=== PATIENT | male | born 1935 | race Caucasian/White ===

== ENCOUNTER 2017-05-21 18:10 | Emergency (ER) | payer MEDICARE, OTHER ==
[~2017-05-21] VITALS: Ht 182.9 cm; Wt 85.7 kg
[~2017-05-21 18:10] MED LIST: ASPIRIN EC325 M1 PO; ATORVASTATIN CA10 MG PO; BENICAR20 MG PO; COLACE 100 MG100 MG PO; COLACE100 MG PO; COZAAR 25 MG TA25 M1 PO; COZAAR 50 MG TA50 M1 PO; CRESTOR5 MG; ELIQUIS5 MG PO; FAMOTIDINE 40 M40 M1; FLOMAX0.4 MG PO; FOLIC ACID 1 MG1 MG PO; IRON325 PO; LOPRESSOR25 PO; MINOCIN100 MG PO; NORCO 5-325 TA1 EACH PO; OXECTA5 MG PO; OXYCODONE HCL 55 MG PO; POTASSIUM PO; PRILOSEC40 MG PO; PROSCAR 5MG TABL5 MG PO; RESTORIL15 MG PO; TRAMADOL 50 MG50 MG PO; VITAMIN B12 PO; XARELTO10 M1 PO; ZOFRAN ODT4 MG PO
[2017-05-21 18:55] LABS: HEMATOCRIT 42.4 % (42.0-52.0); HEMOGLOBIN 14.3 gm/dL (14.0-18.0); MCHC 33.6 g/dL (28.0-37.0); MCV 104.2 fL (80.0-100.0); MPV 8.6 fl. (7.2-11.1); NUCLEATED RBCS 0 /100WBC; PLATELET COUNT* 207 thou/uL (150-400); RBC 4.07 mil/uL (4.50-6.00); RDW-CV 14.4 % (10.5-14.5); WBC 9.7 thou/uL (4.0-11.0)
[2017-05-21 19:04] LABS: ANION GAP 9 mmol/L (7-16); BUN 20 mg/dL (7-18); CALCIUM 8.9 mg/dL (8.5-10.1); CHLORIDE 103 mmol/L (98-107); CO2 27 mmol/L (21-32); CREATININE 0.8 mg/dL (0.6-1.3); GLUCOSE 114 mg/dL (70-99); POTASSIUM 3.8 mmol/L (3.5-5.1); SODIUM 139 mmol/L (136-145)
[2017-05-21 19:16] LABS: ABSOLUTE LYMPHOCYTES 1.5 thou/uL (0.8-5.3); ABSOLUTE MONOCYTES 0.5 thou/uL (0.0-1.2); ABSOLUTE NEUTROPHILS 7.8 thou/uL (1.6-8.1); NT-PRO BRAIN NAT PEPTIDE 255 pg/mL (<300); PLATELET ESTIMATE ADEQUATE; TROPONIN-I LEVEL <0.06 ng/mL (<0.06)
[2017-05-21 21:53] VITALS: BP 140/78
--- NOTE | 2017-05-22 14:43 | EKG ---
[place] [address] ELECTROCARDIOGRAM REPORT Name: MIGUELITO COLLINS Room: [facility]#: [id number] Admission: 05/21/17 Attend Phys: Discharge: 05/21/17 Date of : 39 Report #: [id number] THIS REPORT FOR: //name// [facility] ED Test Date: 2017-05-21 Test Time: 19:36:26 Pat Name: MIGUELITO COLLINS Department: Room: Gender: M Product Technician: LEVI : 1935 Requested By: Keli Jackson Order Number: [id number] MD: Haroldo Weller Measurements Intervals [place] Rate: 67 P: 8 UT: 59 QRS: -65 QRSD: 205 T: 2 QT: 398 QTc: 420 Interpretive Statements Sinus rhythm Short UT interval Inferior infarct, old Lateral leads are also involved Compared to ECG 09/24/2016 19:27:19 Short UT interval now present Sinus tachycardia no longer present Myocardial infarct finding still present Electronically Signed On 05-22-2017 14:42:49 SENIOR ELECTRICAL DESIGN ENGINEER by Haroldo Weller [email or web address] <ELECTRONICALLY SIGNED> By: Haroldo Weller MD, FACC 05/22/17 1442 35 35 Haroldo Weller MD, FACC /EPI
== END 2017-05-21 22:17 | disposition home or self-care (01) ==
LOC: M.ERS 18:10
PROVIDERS: Nurse Practitioner Family
DX: S51.812A Laceration without foreign body of left forearm, initial encounter (principal); F10.10 Alcohol abuse, uncomplicated; I10 Essential (primary) hypertension; E78.00 Pure hypercholesterolemia, unspecified; Z98.890 Other specified postprocedural states; W18.39XA Other fall on same level, initial encounter; Y93.89 Activity, other specified; Y92.89 Other specified places as the place of occurrence of the external cause; Y99.8 Other external cause status

== ENCOUNTER 2018-01-07 06:34 | Inpatient (IN) | payer MEDICARE, OTHER ==
[~2018-01-07] VITALS: Ht 182.9 cm; Wt 102.5 kg
[2018-01-07 06:35] VITALS: BP 166/98
[2018-01-07] MEDS ORDERED: VOLTAREN GEL 1100 G2 TOP (06:44)
[2018-01-07] MEDS ORDERED: FUROSEMIDE 40 M40 MG PO (06:45)
[2018-01-07] MEDS ORDERED: NEURONTIN 400400 M1 PO (06:46)
[2018-01-07] MEDS ORDERED: LOPRESSOR50 PO (06:47)
[2018-01-07] MEDS ORDERED: IRON325 PO (06:47)
[2018-01-07] MEDS ORDERED: MULTIVITAMINS PO (06:48)
[2018-01-07] MEDS ORDERED: ZOLPIDEM TARTRA10 MG PO (06:49)
[2018-01-07] MEDS ORDERED: MELATONIN5 M1 PO (06:49)
[2018-01-07 07:00] LABS: ABSOLUTE BASOPHILS 0.1 thou/uL (0.0-0.2); ABSOLUTE EOSINOPHILS 0.1 thou/uL (0.0-0.7); ABSOLUTE LYMPHOCYTES 0.9 thou/uL (0.8-5.3); ABSOLUTE MONOCYTES 0.6 thou/uL (0.0-1.2); ABSOLUTE NEUTROPHILS 6.3 thou/uL (1.6-8.1); BASOPHILS 0.8 %; EOSINOPHILS 1.6 %; HEMATOCRIT 39.3 % (42.0-52.0); HEMOGLOBIN 13.6 gm/dL (14.0-18.0); LYMPHOCYTES 10.8 %; MCH 35.8 pg (26.0-34.0); MCHC 34.6 g/dL (28.0-37.0); MCV 103.6 fL (80.0-100.0); MPV 7.7 fl. (7.2-11.1); NUCLEATED RBCS 0 /100WBC; PLATELET COUNT* 171 thou/uL (150-400); POLYS 78.8 %; RDW-CV 13.4 % (10.5-14.5)
[2018-01-07 07:09] LABS: ANION GAP 6 mmol/L (7-16); BUN 11 mg/dL (7-18); CALCIUM 8.6 mg/dL (8.5-10.1); CHLORIDE 97 mmol/L (98-107); CO2 31 mmol/L (21-32); CREATININE 0.7 mg/dL (0.6-1.3); GLUCOSE 118 mg/dL (70-99); SODIUM 134 mmol/L (136-145)
[2018-01-07 07:11] LABS: INR 1.1; PROTIME 10.9 Seconds (9.20-11.50)
[2018-01-07 07:20] LABS: ALBUMIN 3.2 g/dL (3.4-5.0); ALKALINE PHOSPHATASE 63 U/L (46-116); LIPASE 503 U/L (73-393); NT-PRO BRAIN NAT PEPTIDE 387 pg/mL (<300); SGOT 67 U/L (15-37); SGPT 51 U/L (30-65); TOTAL BILIRUBIN 1.7 mg/dL (<0.1-1.0); TOTAL PROTEIN 6.1 g/dL (6.4-8.2); TROPONIN-I LEVEL <0.06 ng/mL (<0.06)
[2018-01-07 08:46] LABS: URINE BLOOD TRACE (Negative); URINE CLARITY CLEAR; URINE COLOR YELLOW; URINE GLUCOSE-RANDOM NEGATIVE (Negative); URINE KETONES 2+ (Negative); URINE LEUKOCYTES-REFLEX NEGATIVE (Negative); URINE PROTEIN TRACE (Negative)
[2018-01-07 08:47] LABS: ICTOTEST (BILI CONFIRMATORY) Negative (Negative); URINE BILIRUBIN 1+ (Negative); URINE NITRITE-REFLEX POSITIVE (Negative)
[2018-01-07 08:52] LABS: BACTERIA-REFLEX >30 Many /HPF (None Seen); CASTS None Seen /LPF (None Seen); CRYSTALS None Seen /LPF (None Seen); MUCUS None Seen strn/LPF (None Seen); SQUAMOUS 0-3 Few /LPF (0-3); URINE RBC 3-10 Few /HPF (0-2); URINE WBC-REFLEX 6-15 Few /HPF (0-5)
[2018-01-07 10:34] VITALS: BP 164/89
[2018-01-07 10:37] VITALS: BP 167/86
[2018-01-07 14:30] VITALS: BP 167/86
--- NOTE | 2018-01-07 16:27 | EKG ---
[place] [address] ELECTROCARDIOGRAM REPORT Name: MIGUELITO COLLINS Room: [address] ADM IN M.R.#: [id number] Admission: 01/07/18 Attend Phys: Joel Stokse MD Discharge: Date of : 39 Report #: [id number] THIS REPORT FOR: //name// [facility] ED Test Date: 2018-01-07 Test Time: 06:38:08 Pat Name: MIGUELITO CLOLINS Department: Room: [facility] Gender: M Resizer Operator: : 1935 Requested By: Halina Galindo Order Number: [id number] MD: Je Oleary Measurements Intervals [place] Rate: 89 P: 20 AK: 210 QRS: -42 QRSD: 103 T: 1 QT: 357 QTc: 435 Interpretive Statements Sinus rhythm Rare pvc Abnormal R-wave progression, late transition Inferior infarct, old Compared to ECG 05/21/2017 19:36:26 Sinus pause or arrest now present Short AK interval no longer present Myocardial infarct finding still present Electronically Signed On 01-07-2018 16:27:28 CDT by Je Oleary [email or web address] <ELECTRONICALLY SIGNED> By: Je Oleary MD, [facility] 01/07/18 1627 0638 0638 Je Oleary MD, [facility] /EPI
[2018-01-07 20:00] VITALS: BP 105/62
[2018-01-07 23:18] VITALS: BP 131/79
[2018-01-08] VITALS: BP 131/79
[2018-01-08 04:00] VITALS: BP 124/74
[2018-01-08 04:24] LABS: HEMATOCRIT 37.5 % (42.0-52.0); HEMOGLOBIN 12.8 gm/dL (14.0-18.0); MCH 35.6 pg (26.0-34.0); MCHC 34.2 g/dL (28.0-37.0); MCV 104.1 fL (80.0-100.0); MPV 8.7 fl. (7.2-11.1); RBC 3.6 mil/uL (4.50-6.00); RDW-CV 13.4 % (10.5-14.5); WBC 14.8 thou/uL (4.0-11.0)
[2018-01-08 05:01] LABS: ALBUMIN 2.5 g/dL (3.4-5.0); CALCIUM 7.8 mg/dL (8.5-10.1); CREATININE 0.7 mg/dL (0.6-1.3); MAGNESIUM 1.2 mg/dL (1.8-2.4); POTASSIUM 3.7 mmol/L (3.5-5.1); TOTAL BILIRUBIN 2.2 mg/dL (<0.1-1.0); TOTAL PROTEIN 5.4 g/dL (6.4-8.2)
[2018-01-08 09:00] VITALS: BP 124/75
[2018-01-08 15:48] VITALS: BP 150/69
[2018-01-08 16:00] VITALS: BP 154/88
[2018-01-08 20:00] VITALS: BP 174/95
[2018-01-09 00:19] VITALS: BP 148/79
[2018-01-09 04:40] VITALS: BP 179/89
[2018-01-09 08:00] VITALS: BP 179/89
[2018-01-09 08:53] LABS: HEMATOCRIT 36.8 % (42.0-52.0); HEMOGLOBIN 12.5 gm/dL (14.0-18.0); MCV 105.8 fL (80.0-100.0); MPV 9.5 fl. (7.2-11.1); NUCLEATED RBCS 0 /100WBC; PLATELET COUNT* 142 thou/uL (150-400); RBC 3.48 mil/uL (4.50-6.00); RDW-CV 13.5 % (10.5-14.5); WBC 11.9 thou/uL (4.0-11.0)
[2018-01-09 09:25] LABS: ALBUMIN 2.5 g/dL (3.4-5.0); CALCIUM 7.9 mg/dL (8.5-10.1); CREATININE 0.6 mg/dL (0.6-1.3); POTASSIUM 3.6 mmol/L (3.5-5.1)
[2018-01-09 09:35] LABS: ABSOLUTE EOSINOPHILS 0.1 thou/uL (0.0-0.7); ABSOLUTE LYMPHOCYTES 0.7 thou/uL (0.8-5.3); ABSOLUTE MONOCYTES 0.5 thou/uL (0.0-1.2); ABSOLUTE NEUTROPHILS 10.6 thou/uL (1.6-8.1)
[2018-01-09 09:36] LABS: PLATELET ESTIMATE ADEQUATE
[2018-01-09 12:00] VITALS: BP 177/108
[2018-01-09 15:51] VITALS: BP 158/90
[2018-01-09 20:00] VITALS: BP 189/101
[2018-01-10] VITALS: BP 172/102
[2018-01-10 04:18] VITALS: BP 160/78
[2018-01-10 04:50] LABS: ABSOLUTE BASOPHILS 0.1 thou/uL (0.0-0.2); ABSOLUTE EOSINOPHILS 0.2 thou/uL (0.0-0.7); ABSOLUTE LYMPHOCYTES 0.8 thou/uL (0.8-5.3); ABSOLUTE MONOCYTES 0.8 thou/uL (0.0-1.2); ABSOLUTE NEUTROPHILS 8.1 thou/uL (1.6-8.1); BASOPHILS 0.6 %; EOSINOPHILS 2.3 %; HEMATOCRIT 36.5 % (42.0-52.0); HEMOGLOBIN 12.7 gm/dL (14.0-18.0); LYMPHOCYTES 7.7 %; MCHC 34.7 g/dL (28.0-37.0); MCV 103.9 fL (80.0-100.0); MONOCYTES 7.6 %; MPV 9.1 fl. (7.2-11.1); NUCLEATED RBCS 0 /100WBC; PLATELET COUNT* 182 thou/uL (150-400); POLYS 81.8 %; RBC 3.52 mil/uL (4.50-6.00); WBC 9.9 thou/uL (4.0-11.0)
[2018-01-10 05:11] LABS: ALBUMIN 2.5 g/dL (3.4-5.0); CALCIUM 8.1 mg/dL (8.5-10.1); CREATININE 0.6 mg/dL (0.6-1.3); POTASSIUM 3.6 mmol/L (3.5-5.1); TOTAL BILIRUBIN 1.8 mg/dL (<0.1-1.0); TOTAL PROTEIN 5.9 g/dL (6.4-8.2)
[2018-01-10 08:25] VITALS: BP 161/91
[2018-01-10 12:00] VITALS: BP 147/76
[2018-01-10 16:00] VITALS: BP 167/93
[2018-01-10 19:50] VITALS: BP 187/99
[2018-01-11] VITALS (7 sets, daily range): BP systolic 150–200; BP diastolic 65–98
[2018-01-11 04:50] LABS: HEMATOCRIT 35.4 % (42.0-52.0); MCH 35.6 pg (26.0-34.0); MCHC 33.9 g/dL (28.0-37.0); MCV 104.9 fL (80.0-100.0); MPV 8.1 fl. (7.2-11.1); RBC 3.37 mil/uL (4.50-6.00); WBC 7.8 thou/uL (4.0-11.0)
[2018-01-11 05:17] LABS: ALBUMIN 2.2 g/dL (3.4-5.0); CREATININE 0.5 mg/dL (0.6-1.3); MAGNESIUM 1.8 mg/dL (1.8-2.4); PHOSPHORUS* 3.1 mg/dL (2.5-4.9); POTASSIUM 3.4 mmol/L (3.5-5.1); TOTAL BILIRUBIN 1.3 mg/dL (<0.1-1.0); TOTAL PROTEIN 5.6 g/dL (6.4-8.2)
[2018-01-12] VITALS: BP 151/61
[2018-01-12 04:00] VITALS: BP 146/64
[2018-01-12 05:30] LABS: HEMATOCRIT 35.8 % (42.0-52.0); HEMOGLOBIN 12.5 gm/dL (14.0-18.0); MCHC 34.8 g/dL (28.0-37.0); MCV 103.4 fL (80.0-100.0); RBC 3.47 mil/uL (4.50-6.00); RDW-CV 13.1 % (10.5-14.5); WBC 6.8 thou/uL (4.0-11.0)
[2018-01-12 05:57] LABS: ALBUMIN 2.4 g/dL (3.4-5.0); CALCIUM 8.1 mg/dL (8.5-10.1); CREATININE 0.6 mg/dL (0.6-1.3); MAGNESIUM 1.6 mg/dL (1.8-2.4); PHOSPHORUS* 2.3 mg/dL (2.5-4.9); POTASSIUM 3.6 mmol/L (3.5-5.1); TOTAL BILIRUBIN 1.4 mg/dL (<0.1-1.0); TOTAL PROTEIN 5.8 g/dL (6.4-8.2)
[2018-01-12 08:00] VITALS: BP 137/63
[2018-01-12 12:39] VITALS: BP 174/77
[2018-01-12 16:29] VITALS: BP 156/83
[2018-01-12 20:56] VITALS: BP 152/82
[2018-01-13] VITALS: BP 131/64
[2018-01-13 04:00] VITALS: BP 159/76
[2018-01-13 06:55] LABS: HEMATOCRIT 38.2 % (42.0-52.0); HEMOGLOBIN 13.1 gm/dL (14.0-18.0); MCH 35.4 pg (26.0-34.0); MCHC 34.3 g/dL (28.0-37.0); MCV 103.2 fL (80.0-100.0); RBC 3.7 mil/uL (4.50-6.00); RDW-CV 13.1 % (10.5-14.5); WBC 7.7 thou/uL (4.0-11.0)
[2018-01-13 07:17] LABS: ALBUMIN 2.7 g/dL (3.4-5.0); CALCIUM 8.3 mg/dL (8.5-10.1); CREATININE 0.6 mg/dL (0.6-1.3); POTASSIUM 3.9 mmol/L (3.5-5.1); TOTAL BILIRUBIN 1.5 mg/dL (<0.1-1.0); TOTAL PROTEIN 5.8 g/dL (6.4-8.2)
[2018-01-13 07:50] VITALS: BP 115/56
[2018-01-13 11:28] VITALS: BP 115/56
[2018-01-13] MEDS ORDERED: AUGMENTIN 875-1 EACH PO (11:51)
[2018-01-13] MEDS ORDERED: VITAMIN B-1100 M1 PO (12:00)
== END 2018-01-13 13:19 | disposition home health service (06) | DRG 432 ==
LOC: M.ERS 06:34 → M.TBA-ER 09:17 → M.2W 09:17
PROVIDERS: Emergency Medicine; Surgery; ADMIT Internal Medicine
DX: K70.10 Alcoholic hepatitis without ascites (principal); K85.90 Acute pancreatitis without necrosis or infection, unspecified; R65.11 Systemic inflammatory response syndrome (SIRS) of non-infectious origin with acute organ dysfunction; K80.00 Calculus of gallbladder with acute cholecystitis without obstruction; N39.0 Urinary tract infection, site not specified; E44.0 Moderate protein-calorie malnutrition; E87.1 Hypo-osmolality and hyponatremia; I10 Essential (primary) hypertension; E83.42 Hypomagnesemia; M47.895 Other spondylosis, thoracolumbar region; K21.9 Gastro-esophageal reflux disease without esophagitis; N40.1 Benign prostatic hyperplasia with lower urinary tract symptoms; F10.20 Alcohol dependence, uncomplicated; Y90.9 Presence of alcohol in blood, level not specified; R41.0 Disorientation, unspecified; E80.6 Other disorders of bilirubin metabolism; E78.5 Hyperlipidemia, unspecified; Z79.899 Other long term (current) drug therapy; Z87.891 Personal history of nicotine dependence; Z68.30 Body mass index [BMI] 30.0-30.9, adult

== ENCOUNTER 2018-02-23 07:56 | Observation (INO) | payer MEDICARE, OTHER ==
--- NOTE | 2018-02-17 16:34 | NUR ---
PT'S CELL NUMBER THAT IS LISTED [phone] IS NOT CORRECT IN THE SYSTEM PER THE LADY THAT ANSWERED THE PHONE.
--- NOTE | ~2018-02-23 | H ---
[address] [address] HISTORY AND PHYSICAL Name: MIGUELITO COLLINS Room: [address] Eloy Jacome#: [id number] Admission: 02/23/18 Attend Phys: Matthew Farrell DO Discharge: 02/24/18 Date of : 39 Report #: [id number] THIS REPORT FOR: //name// Please refer to the History and Physical performed in the physician's office. By: 0713Medical Records Staff MOHAN /PUSHPA
--- NOTE | ~2018-02-23 | OP ---
[facility] [address] [place] [address] OPERATIVE REPORT Name: MIGUELITO COLLINS Lore Room: [address] Eloy Jacome#: [id number] Admission: 02/23/18 Attend Phys: Matthew Farrell DO Discharge: Date of : 39 Report #: [id number] THIS REPORT FOR: //name// CC: Matthew Flores DO Patient's Chart DATE OF SERVICE: 02/23/2018 REFERRING PHYSICIAN: Dr. Gloria Flores. PREOPERATIVE DIAGNOSES: Symptomatic cholelithiasis and a history of gallstone pancreatitis. POSTOPERATIVE DIAGNOSES: Symptomatic cholelithiasis and a history of gallstone pancreatitis. PROCEDURE: Laparoscopic cholecystectomy with intraoperative cholangiogram. SURGEON: Matthew Farrell DO. SUPERVISOR POULTRY FARM: Osmin Tillman DO, PGY-3, resident. SECOND CHIEF CLINICAL DIETITIAN: Jenny Goodson DO, PGY-1, resident. ANESTHESIA: General endotracheal. ESTIMATED BLOOD LOSS: Less than 30 mL. COMPLICATIONS: None. DESCRIPTION OF PROCEDURE: After obtaining proper consents and discussing risks and complications with the patient, he was taken to the operating room, laid in the supine position, administered general endotracheal anesthetic. He was then prepped and draped in the usual fashion. A timeout was performed. We confirmed the appropriate patient and procedure. Preoperative antibiotics had been given. SCDs were in place. A supraumbilical skin incision was then made with a #11 scalpel blade. This was carried down through the skin into the subcutaneous tissue using electrocautery for hemostasis. Once the fascia was encountered, it was incised along the midline, grasped and elevated with Shanice clamps and divided further. The peritoneum was then bluntly opened using a hemostat. A finger was placed inside the peritoneal cavity to assure there were no armen-incisional adhesions. Next, 2-0 Vicryl sutures were placed in a [id number]-[id number] fashion to secure the Goyo trocar, which was then inserted and insufflation was begun. Once insufflation was complete, [place] [address] OPERATIVE REPORT Name: MIGUELITO COLLINS Room: [address] JacksonR.#: [id number] Admission: 02/23/18 Attend Phys: Matthew Farrell, Discharge: Date of : 39 Report #: [id number] of the anterior abdominal organs was performed. This revealed a very thick walled appearing gallbladder. The liver was somewhat nodular. There were omental adhesions surrounding the gallbladder. There were no other gross abnormalities identified. We then placed the patient in reverse Trendelenburg position. A 10 mm trocar was placed in the subxiphoid position. Two 5 mm trocars were placed on the right upper quadrant. I was unable to grasp and elevate the gallbladder and the omental adhesions were bluntly taken down using both electrocautery, a [place] dissector and a suction gas attendant. Once we were able to identify Jarad's pouch, it was grasped and elevated. The hepatoduodenal ligament was quite fibrous and firm and it did take quite some time to dissect this down until we were able to visualize a structure going directly into the gallbladder. The structure appeared to be the cystic duct. We dissected this all the way up onto the gallbladder and also followed it down to what appeared to be the common bile duct. Once the duct was dissected free, I did place a clip at the gallbladder cystic duct junction. We then performed cholangiography both to assure there were no stones blocking the common bile duct and also to delineate the anatomy better. Once the cholangiogram was performed, this showed good flow of contrast into the cystic duct down into the common bile duct and into the duodenum. It did appear that the cystic duct coursed around the medial aspect of the common bile duct before it entered and was quite long. The hepatic radicles were not initially visualized; however, after I injected with more pressure, I was able to visualize the common hepatic duct and also the right hepatic and hepatic radicles. We then removed the cholangiogram catheter and placed 3 clips proximally on the cystic duct. The gallbladder was then dissected free and we identified the cystic artery as it coursed directly into the gallbladder. Again, this was the only structure coursing directly and somewhat posterior to where the duct had been. This was dissected free and clipped proximally and distally. After dividing this, it did pulsate consistent with the artery. I then bluntly and sharply dissected the gallbladder free from the liver bed using suction gas attendant as well as electrocautery to maintain hemostasis. Once the gallbladder was completely removed, the cystic duct and cystic artery stumps and liver bed were all checked for any leak or bleeding. There was none identified. The gallbladder was placed into an Endopouch. We then copiously irrigated the area and then placed a 15-Tristanian Zbigniew-Spicer drain through the right upper quadrant trocar. This was placed down into the gallbladder fossa and then secured in place using a 2-0 nylon suture. The insufflation was then stopped. All air was released. The trocars were removed under direct vision. The gallbladder was removed through the umbilical incision within the Endopouch. The umbilical fascia was then closed using the 2 previously placed 0 Vicryl sutures plus 2 additional 0 Vicryl sutures. Skin incisions were all closed using 4-0 Monocryl subcuticular stitches. The wounds were injected with 0.5% Marcaine [place] [address] OPERATIVE REPORT Name: MIGUELITO COLLINS Room: [address] Eloy Jacome#: [id number] Admission: 02/23/18 Attend Phys: Matthew Farrell DO Discharge: Date of : 39 Report #: [id number] Sterile dressings were placed. The patient tolerated the procedure well and was transported to recovery room in stable condition. By: 1049 1240Adabritni Farrell DO /nt
[~2018-02-23 07:56] MED LIST changes: +AUGMENTIN 875-1 EACH PO; +FUROSEMIDE 40 M40 MG PO; +LOPRESSOR50 PO; +MELATONIN5 M1 PO; +MULTIVITAMINS PO; +NEURONTIN 400400 M1 PO; +VITAMIN B-1100 M1 PO; +VOLTAREN GEL 1100 G2 TOP; +ZOLPIDEM TARTRA10 MG PO
[2018-02-23 08:20] LABS: HEMATOCRIT 43.9 % (42.0-52.0); HEMOGLOBIN 14.7 gm/dL (14.0-18.0); MCH 33.4 pg (26.0-34.0); MCHC 33.6 g/dL (28.0-37.0); MCV 99.5 fL (80.0-100.0); RBC 4.42 mil/uL (4.50-6.00); RDW-CV 12.8 % (10.5-14.5); WBC 6.3 thou/uL (4.0-11.0)
[2018-02-23 08:25] LABS: CALCIUM 9.2 mg/dL (8.5-10.1); CREATININE 0.9 mg/dL (0.6-1.3); POTASSIUM 4.1 mmol/L (3.5-5.1)
[2018-02-23 08:29] LABS: ALBUMIN 3.5 g/dL (3.4-5.0); TOTAL PROTEIN 6.9 g/dL (6.4-8.2)
[2018-02-23] MEDS ORDERED: LOSARTAN-HCTZ1 EACH PO (08:39)
[2018-02-23] MEDS ORDERED: POTASSIUM PO (08:41)
[2018-02-23] MEDS ORDERED: NEXIUM40 MG PO (08:41)
[2018-02-23 12:21] VITALS: BP 193/96
--- NOTE | 2018-02-23 17:47 | NUR ---
PT ADMITTED S/P LAP DEMETRIO, SURGICAL DRESSING TO ABD, LAP SITES NOT OBSERVED, DRESSING CDI. TRUDY DRAIN RLQ. PT C/O PAIN AT DRAIN SITE, RELIEVED WITH PAIN MED. TRUDY DRAINAGE SEROSAGUINOUS. PT DROWSY AND ORIENTED X4 ON ARRIVAL, NO FULLY AWAKE. NO C/O CURRENTLY. PT ORIENTED TO ROOM, ABLE TO MAKE NEEDS KNOWN, CALL LIGHT IN REACH
[2018-02-23 20:00] VITALS: BP 155/85
[2018-02-23 22:00] VITALS: BP 155/85
[2018-02-24 00:22] VITALS: BP 116/71
[2018-02-24 04:23] VITALS: BP 126/73
--- NOTE | 2018-02-24 04:44 | NUR ---
PATIENT HAS REMAINED ALERT AND ORIENTED X 4 THROUGHOUT THE SHIFT AND RESTING QUIETLY ON HOURLY ROUNDS. UP AT BEDSIDE TO ATTEMPT TO VOID AT HS WITH 50 ML ONLY RESULT AND BLADDER SCAN AT 414 ML. STRAIGHT CATH PROVIDED WITH 500 ML RETURN. HAS NOT NEEDED TO VOID AGAIN OF THIS WRITING. WILL REASSESS AT 0600. DRESSINGS TO ABDOMEN CLEAN AND DRY. TRUDY INTACT RLQ WITH SHADOWING. VITAL SIGNS STABLE WITH O2 ON AT 2L/MIN. NO NAUSEA WITH LIQUIDS OVERNIGHT. HOME MEDS RESUMED. CONTINUE TO MONITOR.
[2018-02-24 08:10] VITALS: BP 127/69
[2018-02-24 09:27] LABS: HEMATOCRIT 41.9 % (42.0-52.0); MCH 32.6 pg (26.0-34.0); MCHC 33.3 g/dL (28.0-37.0); MCV 97.9 fL (80.0-100.0); MPV 9.1 fl. (7.2-11.1); RBC 4.28 mil/uL (4.50-6.00); RDW-CV 12.8 % (10.5-14.5); WBC 12.7 thou/uL (4.0-11.0)
[2018-02-24 09:33] LABS: ALBUMIN 3.1 g/dL (3.4-5.0); CALCIUM 8.9 mg/dL (8.5-10.1); POTASSIUM 3.8 mmol/L (3.5-5.1); TOTAL BILIRUBIN 1.1 mg/dL (<0.1-1.0); TOTAL PROTEIN 6.4 g/dL (6.4-8.2)
[2018-02-24] MEDS ORDERED: NORCO 5-325 TA1 EACH PO (11:22)
[2018-02-24 11:23] VITALS: BP 126/73
[2018-02-24] MEDS ORDERED: CIPRO500 MG PO (13:59)
--- NOTE | 2018-02-24 16:38 | NUR ---
PATIENT DISCHARGED TO HOME AT THIS TIME. IV REMOVED. SCRIPT FOR CIPRO AND NORCO GIVEN. PATIENT AND SPOUSE VERBALIZE UNDERSTANDING OF DC INSTRUCTIONS. SURGEON REMOVED TRUDY DRAIN PRIOR TO DC.
--- NOTE | 2018-02-27 08:11 | PATH ---
[facility] [address] [place] [address] PATHOLOGY RPT PROCEDURE Name: RAMON COLLINS Room: [address] Eoly Jacome#: [id number] Admission: 02/23/18 Date of : 39 Discharge: 02/24/18 Report #: [id number] Path Case #: [id number] [facility] Accession Number: [id number] . 01 Material submitted: . GALLBLADDER . 01 Clinical history: . Calculus of gallbladder without cholecystitis without obstruction . 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 (COCO:pit 02/25/2018) QTP/02/25/2018 . 02 Electronically signed: . Kvng Davis MD, Pathologist NPI- [id number] . 01 Gross description: . The specimen is received in formalin, labeled "Ramon Collins, gallbladder". Received is an intact gallbladder measuring 7.2 x 2.8 x 2.4 cm in greatest dimensions displaying pink-arciniega, shaggy serosal surfaces. Opening the gallbladder reveals a velvety, pink-ricks mucosa with a gallbladder wall thickness of 0.3 cm. Calculi are present displaying a light brown and friable appearance, and no masses or lesions are noted grossly. Network Announcer sections, to include the proximal margin, are submitted in cassette A1. (CAA; 02/24/2018) QAC/QAC . 02 Pathologist provided ICD-10: K80.12 . 02 CPT . 432334 Specimen Comment: A courtesy copy of this report has been sent to Specimen Comment: [phone], . Specimen Comment: Report sent to / DR LARES Specimen Comment: A duplicate report has been generated due to demographic updates. Performed at: [address] [id number] MD Jose Rajan MD Phone: [phone] Performed at: 02 [place] [address] PATHOLOGY RPT PROCEDURE Name: RAMON COLLINS Room: [address] Eloy Jacome#: [id number] Admission: 02/23/18 Date of : 39 Discharge: 02/24/18 Report #: [id number] Path Case #: [id number] [facility] [address] JANELLE Pollard [id number] MD Kvng Davis MD Phone: [phone]
== END 2018-02-24 16:39 | disposition home or self-care (01) ==
LOC: M.SUR 07:56 → M.ORTHSURG 11:08 → M.TBA 11:08 → M.ORTHSURG 12:11
PROVIDERS: ADMIT Surgery
DX: K80.00 Calculus of gallbladder with acute cholecystitis without obstruction (principal); I10 Essential (primary) hypertension; K21.9 Gastro-esophageal reflux disease without esophagitis; Z98.890 Other specified postprocedural states

== ENCOUNTER → 2018-12-06 | Outpatient (CLI) | payer MEDICARE, OTHER ==
[~2018-12-06] MED LIST changes: +CIPRO500 MG PO; +LOSARTAN-HCTZ1 EACH PO; +NEXIUM40 MG PO
[2018-12-06 10:00] LABS: NUCLEATED RBCS 0 /100WBC
[2018-12-06 10:03] LABS: ABSOLUTE BASOPHILS 0.1 thou/uL (0.0-0.2); ABSOLUTE EOSINOPHILS 0.1 thou/uL (0.0-0.7); ABSOLUTE LYMPHOCYTES 1.3 thou/uL (0.8-5.3); ABSOLUTE MONOCYTES 0.4 thou/uL (0.0-1.2); ABSOLUTE NEUTROPHILS 3.5 thou/uL (1.6-8.1); BASOPHILS 2.2 %; EOSINOPHILS 2.7 %; HEMATOCRIT 43.6 % (42.0-52.0); HEMOGLOBIN 15.2 gm/dL (14.0-18.0); LYMPHOCYTES 23.8 %; MCH 32.9 pg (26.0-34.0); MCHC 34.9 g/dL (28.0-37.0); MCV 94.1 fL (80.0-100.0); MONOCYTES 7.9 %; MPV 8.5 fl. (7.2-11.1); PLATELET COUNT* 218 thou/uL (150-400); POLYS 63.4 %; RBC 4.64 mil/uL (4.50-6.00); RDW-CV 15.5 % (10.5-14.5); WBC 5.6 thou/uL (4.0-11.0)
[2018-12-06 10:13] LABS: ALBUMIN 3.5 g/dL (3.4-5.0); CALCIUM 9.1 mg/dL (8.5-10.1); CREATININE 0.9 mg/dL (0.6-1.3); TOTAL BILIRUBIN 1.1 mg/dL (<0.1-1.0); TOTAL PROTEIN 6.7 g/dL (6.4-8.2)
== END ==
LOC: M.LAB 09:30 → M.CT 11:00
PROVIDERS: Internal Medicine Gastroenterology
DX: I70.0 Atherosclerosis of aorta (principal); I77.819 Aortic ectasia, unspecified site; J84.10 Pulmonary fibrosis, unspecified; M43.27 Fusion of spine, lumbosacral region; M43.25 Fusion of spine, thoracolumbar region; R14.0 Abdominal distension (gaseous)

== ENCOUNTER 2019-03-29 09:17 | Inpatient (IN) | payer MEDICARE, OTHER ==
[~2019-03-29] VITALS: Ht 182.9 cm; Wt 97.1 kg
[~2019-03-29 09:17] MED LIST changes: +ASPIR 8181 MG PO; +LIPITOR 20 MG T20 M1 PO; +LIPITOR40 MG PO
[2019-03-29 09:21] VITALS: BP 201/103
[2019-03-29 09:38] LABS: ABSOLUTE BASOPHILS 0.1 thou/uL (0.0-0.2); ABSOLUTE EOSINOPHILS 0.2 thou/uL (0.0-0.7); ABSOLUTE LYMPHOCYTES 1.3 thou/uL (0.8-5.3); ABSOLUTE MONOCYTES 0.4 thou/uL (0.0-1.2); BASOPHILS 1.4 %; HEMATOCRIT 39.7 % (42.0-52.0); MCH 33.2 pg (26.0-34.0); MCHC 35.2 g/dL (28.0-37.0); MCV 94.3 fL (80.0-100.0); MONOCYTES 6.2 %; MPV 8.7 fl. (7.2-11.1); NUCLEATED RBCS 0 /100WBC; PLATELET COUNT* 195 thou/uL (150-400); POLYS 70.4 %; RBC 4.21 mil/uL (4.50-6.00); RDW-CV 14.5 % (10.5-14.5); WBC 7.1 thou/uL (4.0-11.0)
[2019-03-29 09:48] LABS: APTT 31.5 Seconds (25.0-31.3); CALCIUM 7.8 mg/dL (8.5-10.1); CREATININE 0.9 mg/dL (0.6-1.3); INR 1.1; POTASSIUM 3.3 mmol/L (3.5-5.1); PROTIME 11.3 Seconds (9.20-11.50)
[2019-03-29 10:03] LABS: ALBUMIN 3.2 g/dL (3.4-5.0); CK-MB MASS 0.5 ng/mL (<0.5-3.6); TOTAL BILIRUBIN 1.2 mg/dL (<0.1-1.0); TOTAL PROTEIN 6.2 g/dL (6.4-8.2)
[2019-03-29 10:52] LABS: URINE BILIRUBIN NEGATIVE (Negative); URINE BLOOD NEGATIVE (Negative); URINE CLARITY CLEAR; URINE COLOR YELLOW; URINE GLUCOSE-RANDOM NEGATIVE (Negative); URINE KETONES NEGATIVE (Negative); URINE LEUKOCYTES-REFLEX NEGATIVE (Negative); URINE NITRITE-REFLEX NEGATIVE (Negative); URINE PROTEIN NEGATIVE (Negative)
[2019-03-29 12:49] VITALS: BP 181/86
--- NOTE | 2019-03-29 15:29 | EKG ---
[place] [address] ELECTROCARDIOGRAM REPORT Name: MIGUELITO COLLINS Room: [address] ADM IN M.R.#: [id number] Admission: 03/29/19 Attend Phys: Carlin Knox MD Discharge: Date of : 39 Report #: [id number] THIS REPORT FOR: //name// [facility] ED Test Date: 2019-03-29 Test Time: 09:27:20 Pat Name: MIGUELITO COLLINS Department: Room: [facility] Gender: M Primary Teacher: : 1935 Requested By: Seb Allred Order Number: [id number] MD: Santana Roman Measurements Intervals [place] Rate: 70 P: 0 AL: 218 QRS: -85 QRSD: 108 T: -14 QT: 414 QTc: 447 Interpretive Statements Sinus rhythm artifact noted nonspecific st changes Abnormal R-wave progression, late transition Inferior infarct, age indeterminate Compared to ECG 01/07/2018 06:38:08 Ventricular premature complex(es) no longer present Myocardial infarct finding still present Electronically Signed On 03-29-2019 15:29:20 ASSISTED LIVING COORDINATOR by Santana Roman [email or web address] <ELECTRONICALLY SIGNED> By: Santana Roman MD, FAC 03/29/19 1529 6 6 Santana Roman MD, FAC /EPI
[2019-03-29 16:31] VITALS: BP 179/71
[2019-03-29 20:00] VITALS: BP 191/95
[2019-03-30] VITALS: BP 174/74
[2019-03-30 02:06] LABS: GLYCOHEMOGLOBIN (HGB A1C) 5.2 % (4.8-5.6)
[2019-03-30 04:00] VITALS: BP 166/91
[2019-03-30 05:11] LABS: ABSOLUTE BASOPHILS 0.1 thou/uL (0.0-0.2); ABSOLUTE EOSINOPHILS 0.2 thou/uL (0.0-0.7); ABSOLUTE LYMPHOCYTES 1.9 thou/uL (0.8-5.3); ABSOLUTE MONOCYTES 0.5 thou/uL (0.0-1.2); ABSOLUTE NEUTROPHILS 5.3 thou/uL (1.6-8.1); BASOPHILS 0.9 %; EOSINOPHILS 2.4 %; HEMATOCRIT 41.2 % (42.0-52.0); HEMOGLOBIN 14.3 gm/dL (14.0-18.0); MCH 32.9 pg (26.0-34.0); MCHC 34.9 g/dL (28.0-37.0); MCV 94.4 fL (80.0-100.0); MONOCYTES 6.8 %; MPV 8.7 fl. (7.2-11.1); NUCLEATED RBCS 0 /100WBC; PLATELET COUNT* 219 thou/uL (150-400); POLYS 65.9 %; RBC 4.36 mil/uL (4.50-6.00); RDW-CV 14.3 % (10.5-14.5); WBC 8.1 thou/uL (4.0-11.0)
[2019-03-30 05:37] LABS: CALCIUM 8.6 mg/dL (8.5-10.1); CREATININE 0.8 mg/dL (0.6-1.3); POTASSIUM 3.5 mmol/L (3.5-5.1)
[2019-03-30 05:40] LABS: CHOLESTEROL 119 mg/dL (<200); HDL CHOLESTEROL 51 mg/dL (>40); LDL CHOLESTEROL 36 mg/dL (<100); TC:HDL 2.3 Ratio (Not establshd); TRIGLYCERIDE 160 mg/dL (<150); VLDL 32 mg/dL (<40)
[2019-03-30 05:50] LABS: SERUM ASSESSMENT Clear
[2019-03-30 07:00] VITALS: BP 163/71
[2019-03-30 10:31] VITALS: BP 163/71
== END 2019-03-30 11:37 | disposition home or self-care (01) | DRG 917 ==
LOC: M.ERS 09:17 → M.2W 11:02 → M.TBA-ER 11:02 → M.2W 13:06
PROVIDERS: Family Medicine; ADMIT Internal Medicine
DX: T42.6X1A Poisoning by other antiepileptic and sedative-hypnotic drugs, accidental (unintentional), initial encounter (principal); G92 Toxic encephalopathy; E78.5 Hyperlipidemia, unspecified; I10 Essential (primary) hypertension; K21.9 Gastro-esophageal reflux disease without esophagitis; N40.0 Benign prostatic hyperplasia without lower urinary tract symptoms; M19.90 Unspecified osteoarthritis, unspecified site; Z86.73 Personal history of transient ischemic attack (TIA), and cerebral infarction without residual deficits; Y92.89 Other specified places as the place of occurrence of the external cause; Z79.82 Long term (current) use of aspirin

== ENCOUNTER → 2020-01-16 | Outpatient (CLI) | payer MEDICARE, OTHER | LOC: M.ULTRA 10:55 | PROVIDERS: ATTEND Internal Medicine Gastroenterology | DX: R16.1 Splenomegaly, not elsewhere classified (principal); R14.0 Abdominal distension (gaseous) ==

== ENCOUNTER → 2020-10-23 | Outpatient (CLI) | payer MEDICARE, OTHER ==
[~2020-10-23] MED LIST changes: +AMBIEN CR12.5 MG PO; +GABAPENTIN600 M1 PO; +HYDROCODON-ACE1 EAC7 PO; +LASIX 40 MG TAB40 MG PO; +LYRICA 75 MG CA75 MG PO; +MELOXICAM15 MG PO; +PROSCAR 5MG TABL5 M1 PO; +TOPROL XL25 MG PO
== END ==
LOC: M.PC 11:01
PROVIDERS: ATTEND Anesthesiology Pain Medicine
DX: M48.07 Spinal stenosis, lumbosacral region (principal); M54.6 Pain in thoracic spine; G89.29 Other chronic pain; I10 Essential (primary) hypertension; K21.9 Gastro-esophageal reflux disease without esophagitis; M40.295 Other kyphosis, thoracolumbar region; M17.12 Unilateral primary osteoarthritis, left knee; G62.9 Polyneuropathy, unspecified; E78.5 Hyperlipidemia, unspecified; N40.0 Benign prostatic hyperplasia without lower urinary tract symptoms; Z79.891 Long term (current) use of opiate analgesic; Z79.899 Other long term (current) drug therapy; Z72.89 Other problems related to lifestyle

== ENCOUNTER → 2020-10-25 | Outpatient (CLI) | payer MEDICARE, OTHER ==
[~2020-10-25] MED LIST changes: +ASPIRIN EC81 M1 PO; +LEVOFLOXACIN500 MG PO; +LIDOPATCH1 EACH TOP; +NEURONTIN600 MG PO
== END | disposition home or self-care (01) ==
LOC: M.PC 09:10
PROVIDERS: ATTEND Anesthesiology Pain Medicine
DX: M79.18 Myalgia, other site (principal); M54.9 Dorsalgia, unspecified; G89.29 Other chronic pain; I10 Essential (primary) hypertension; E78.5 Hyperlipidemia, unspecified; G62.9 Polyneuropathy, unspecified; K21.9 Gastro-esophageal reflux disease without esophagitis; M17.12 Unilateral primary osteoarthritis, left knee; N40.0 Benign prostatic hyperplasia without lower urinary tract symptoms; Z98.890 Other specified postprocedural states; Z79.899 Other long term (current) drug therapy; Z96.652 Presence of left artificial knee joint; Z90.49 Acquired absence of other specified parts of digestive tract; Z87.891 Personal history of nicotine dependence

== ENCOUNTER 2020-11-10 14:05 | Inpatient (IN) | payer MEDICARE, OTHER ==
[~2020-11-10] VITALS: Ht 180.3 cm; Wt 109.3 kg
[~2020-11-10 14:05] MED LIST changes: -ASPIRIN EC81 M1 PO; -LEVOFLOXACIN500 MG PO; -LIDOPATCH1 EACH TOP; -NEURONTIN600 MG PO
[2020-11-10 14:06] VITALS: BP 109/65
[2020-11-10] MEDS ORDERED: NEXIUM40 MG PO ×2 (14:14)
[2020-11-10 15:05] LABS: CALCIUM 8.4 mg/dL (8.5-10.1); POTASSIUM 3.3 mmol/L (3.5-5.1)
[2020-11-10 15:09] LABS: ABSOLUTE BASOPHILS 0.1 thou/uL (0.0-0.2); ABSOLUTE EOSINOPHILS 0.2 thou/uL (0.0-0.7); ABSOLUTE LYMPHOCYTES 1.5 thou/uL (0.8-5.3); ABSOLUTE MONOCYTES 0.8 thou/uL (0.0-1.2); ABSOLUTE NEUTROPHILS 8.3 thou/uL (1.6-8.1); BASOPHILS 0.9 %; HEMATOCRIT 40.2 % (42.0-52.0); LYMPHOCYTES 13.6 %; MCH 34.3 pg (26.0-34.0); MCHC 34.9 g/dL (28.0-37.0); MCV 98.3 fL (80.0-100.0); MONOCYTES 7.7 %; MPV 8.4 fl. (7.2-11.1); NUCLEATED RBCS 0 /100WBC; PLATELET COUNT* 289 thou/uL (150-400); POLYS 75.8 %; RBC 4.09 mil/uL (4.50-6.00); RDW-CV 13.5 % (10.5-14.5)
[2020-11-10 15:10] LABS: ALBUMIN 3.2 g/dL (3.4-5.0); TOTAL BILIRUBIN 1.2 mg/dL (<0.1-1.0); TOTAL PROTEIN 6.4 g/dL (6.4-8.2)
--- NOTE | 2020-11-10 21:40 | NUR ---
PT ADMTTED TO FLOOR PER CART ACCOMPANIED BY DTR AND ER STAFF WITH BELONGINGS. PT AOX4, ORIENTED TO ROOM AND CALL LITE. PT CO R HIP PAIN /, REQUESTING MEDICATION-TO BE GIVEN WHEN AVAILABLE. HISTORY OBTAINED AND ASSESSMENT PERFORMED, SEE ADMIT NOTES. L HAND IVF PLACED ON PUMP FOR INFUSION. O2 2L PLACED ON PT TO KEEP SATS >92%. PT INSTRUCTED IN NPO AFTER MIDNIGHT PLAN, ORTHO TO SEE PT IN AM. PT REQUESTING SLEEP MED, DR TO BE NOTIFIED FOR ORDERS. BED ALARM ON FOR SAFETY, CALL LITE IN EASY REACH.
[2020-11-10 21:41] VITALS: BP 135/63
[2020-11-10 21:45] VITALS: BP 124/69
[2020-11-10] MEDS ORDERED: ASPIRIN EC81 M1 PO ×2 (22:50)
[2020-11-11 03:06] VITALS: BP 124/69
[2020-11-11 04:00] VITALS: BP 122/53
--- NOTE | 2020-11-11 05:45 | NUR ---
NEW ADMIT THIS SHIFT. AOX4, FORGETFUL. R HIP PAIN, IV MEDS GIVEN PRN. R ELBOW SKIN TEAR DRSG CDI. NPO SINCE MIDNIGHT FOR SURGERY TODAY. CIWA 0. VOIDING PER URINAL. L HAND IVF INFUSING PER PUMP. ABLE TO USE CALL LITE AND MAKE NEEDS KNONW. BED ALARM ON FOR SAFETY. O2 2L NC.
--- NOTE | 2020-11-11 12:48 | EKG ---
[place] [address] ELECTROCARDIOGRAM REPORT Name: MIGUELITO COLLINS Room: [address] ADM IN M.R.#: [id number] Admission: 11/10/20 Attend Phys: Lili Osborne, Discharge: Date of : 39 Date of Service: 11/10/20 1430 Report #: [id number] THIS REPORT FOR: //name// 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: APRIL : 1935 Requested By: Seb Allred Order Number: [id number] MD: Haroldo Weller Measurements Intervals [place] Rate: 69 P: -14 RI: 170 QRS: -47 QRSD: 121 T: 5 QT: 427 QTc: 458 Interpretive Statements Sinus rhythm Right bundle branch block inferior infarct, old Delayed R wave progression compared to ECG 03/29/2019 09:27:20 ST (T wave) deviation no longer present Myocardial infarct finding still present Electronically Signed On 11-11-2020 12:47:55 CDT by Haroldo Weller [email or web address] <ELECTRONICALLY SIGNED> By: Haroldo Weller MD, FACC 11/11/20 1247 1430 1430 Haroldo Weller MD, FAC /EPI
[2020-11-11 15:30] VITALS: BP 157/74
--- NOTE | 2020-11-11 18:52 | NUR ---
PT ALERT AND ORIENTED, PLEASANT. PT WENT TO SURGERY AT 1000 AND CAME BACK AROUND 1530, HE WAS PLACED ON 6L AND A VALDEZ WAS PLACED BECAUSE HE WAS HAVING TROUBLE URINATING.
[2020-11-11 19:59] VITALS: BP 140/81
[2020-11-12 00:05] VITALS: BP 140/72
[2020-11-12 04:15] LABS: HEMATOCRIT 36.3 % (42.0-52.0); HEMOGLOBIN 12.8 gm/dL (14.0-18.0); MCH 35.3 pg (26.0-34.0); MCHC 35.3 g/dL (28.0-37.0); MPV 8.9 fl. (7.2-11.1); RBC 3.63 mil/uL (4.50-6.00); RDW-CV 13.5 % (10.5-14.5); WBC 10.2 thou/uL (4.0-11.0)
[2020-11-12 04:39] LABS: ALBUMIN 2.7 g/dL (3.4-5.0); CALCIUM 7.7 mg/dL (8.5-10.1); CREATININE 0.8 mg/dL (0.6-1.3); MAGNESIUM 2.2 mg/dL (1.8-2.4); TOTAL BILIRUBIN 1.2 mg/dL (<0.1-1.0); TOTAL PROTEIN 5.7 g/dL (6.4-8.2)
--- NOTE | 2020-11-12 06:04 | NUR ---
PT IS ABLE TO COMMUNICATE HIS NEEDS TO STAFF EFFECTIVELY. CURRENT PAIN MEDICATION REGIMEN HAS BEEN ADEQUATE FOR CONTROLLING HIS PAIN UP TO THIS TIME. PT HAS BEEN WEARING A CAPNO/NC DURING THIS SHIFT. HE HAS HAD THE ABDUCTION WEDGE IN PLACE OVERNIGHT AND UP TO THIS TIME. VALDEZ HAS BEEN PATENT UP TO THIS TIME.
[2020-11-12 08:00] VITALS: BP 169/93
[2020-11-12 12:00] VITALS: BP 132/72
[2020-11-12 16:00] VITALS: BP 106/56
--- NOTE | 2020-11-12 16:34 | NUR ---
CM ASSESSMENT: PT A&O, AND NORMALLY INDEPENDENT WITH ADL'S. PT RESIDES AT HOME WITH SPOUSE AND SHE IS ABLE TO ASSIST 'SOME' IF NEEDED PER PT. PT'S SPOUSE DOES ALL COOKING CLEANING AND DRIVING FOR THE HOUSEHOLD. PT USES A WALKER FOR MOBILITY. PT HAS PAST HX OF HH WITH [facility]. PT HAS HX OF SNF AT [facility], AND ACUTE REHAB AT [facility]. PT CURRENTLY ON OXYGEN,AND DID NOT HAVE HOME OXYGEN PRIOR TO ADMIT. PT ALSO CURRRENTLY HAS HIP PRECAUTIONS, AND IS 50% WBS. THIS MAY PRESENT A BARRIER TO D/C TO INPT REHAB. PT MAY BE MORE APPROPRIATE FOR SNF AT D/C. INPT REHAB RECOMMENDATIONS PENDING. CM WILL REMAIN AVAILABLE TO ASSIST AND FOLLOW NEEDED.
[2020-11-12 20:19] VITALS: BP 136/72
[2020-11-13] VITALS: BP 126/54
[2020-11-13 04:15] LABS: CALCIUM 7.7 mg/dL (8.5-10.1); CREATININE 0.9 mg/dL (0.6-1.3); MAGNESIUM 2.1 mg/dL (1.8-2.4); POTASSIUM 3.8 mmol/L (3.5-5.1)
[2020-11-13 04:48] LABS: HEMATOCRIT 33.4 % (42.0-52.0); HEMOGLOBIN 11.7 gm/dL (14.0-18.0); MCH 35.2 pg (26.0-34.0); MCHC 34.9 g/dL (28.0-37.0); MCV 100.6 fL (80.0-100.0); RBC 3.32 mil/uL (4.50-6.00); RDW-CV 13.8 % (10.5-14.5); WBC 8.5 thou/uL (4.0-11.0)
[2020-11-13 05:33] VITALS: BP 119/66
--- NOTE | 2020-11-13 08:01 | NUR ---
PT IS ABLE TO COMMUNICATE HIS NEEDS TO STAFF EFFECTIVELY. CURRENT PAIN MEDICATION REGIMEN HAS BEEN ADEQUATE FOR CONTROLLING HIS PAIN UP TO 0700 THIS MORNING. RT HIP SURGICAL DRESSING TO BE CHANGED BY SURGERY TODAY. ABDUCTOR WEDGE IN PLACE. VALDEZ PATENT UP TO 0700.
[2020-11-13 08:29] VITALS: BP 129/58
--- NOTE | 2020-11-13 10:10 | NUR ---
WOUND NURSE: PATIENT SEEN TO ADDRESS SKIN TEAR ON RIGHT ELBOW WHICH PATIENT REPORTS OCCURRED AT HOME FROM A FALL. THERE ARE STERISTRIPS IN PLACE, BUT 3 LOOSE AND SUBSEQUENTLY REMOVED. EDGES ARE NOT ALL WELL APPROXIMATED. PRESENTS WITH PARITAL THICKNESS TISSUE LOSS AND PINK TO RED NONGRANULATING TISSUE IN THE WOUND BED. THERE IS PERIWOUND ECCHYMOSIS. PATIENT SEEMS CONFUSED AND IS CURRENTLY NONTEACHEABLE.
[2020-11-13 12:00] VITALS: BP 109/62; BP 117/70
--- NOTE | 2020-11-13 15:07 | NUR ---
PLAN OF CARE: PHYSICIAN INFORMS THAT PT IS NOT MEDICALLY STABLE FOR D/C AT THIS TIME. PLAN FOR THE PT TO POSSIBLY DC TO INPT REHAB PENDING ACCEPTANCE. PT/OT F/U PENDING. PT AND SPOUSE INFORM THAT THEY WOULD WANT THE PT TO GO TO [facility] SNF IF NOT ACCEPTED TO INPT ARU HERE. CM WILL REMAIN AVAILABLE TO ASSIST AND FOLLOW NEEDED.
[2020-11-13 17:00] VITALS: BP 102/64
[2020-11-13 20:14] VITALS: BP 105/56
[2020-11-14] VITALS (7 sets, daily range): BP systolic 88–133; BP diastolic 48–67
--- NOTE | 2020-11-14 07:49 | NUR ---
PT IS ABLE TO COMMUNICATE HIS NEEDS TO STAFF EFFECTIVELY; HE CAN BE CONFUSED AT TIMES, BUT IS EASILY REORIENTED. CURRENT PAIN MEDICATION REGIMEN HAS BEEN ADEQUATE FOR CONTROLLING HIS PAIN UP TO THIS TIME. PT/OT WORKING WITH HIM. SURGERY FOLLOWING. WEARING DELFINO MARSH. PT VOIDING.
--- NOTE | 2020-11-14 17:19 | NUR ---
PATIENT HAS REMAINED A&OX3-4 (FORGETFUL AT TIMES) THIS SHIFT. PATIENT DECLINED PT/OT STATING THAT HE WAS [place]" TODAY. THIS NURSE CLARIFIED WITH PATIENT AND FAMILY THAT THERE HAS BEEN NO WORD ON PATIENT DISCHARGING TODAY. PATIENT AND FAMILY VERBALIZE UNDERSTANDING. PATIENT INCONTINENT OF URINE THIS SHIFT. DRESSING TO RIGHT HIP C/D/I. PER DR. ROBB'S VERBAL REQUEST, ORDERED CHEST X-RAY D/T PATIENT DESATTING INTO THE HIGH 70'S ON ROOM AIR. PLACED PATIENT BACK ON 3L O2 TO KEEP SATURATIONS >92%. AND DAUGHTER CURRENTLY AT BEDSIDE. MEDICATIONS ADMINISTERED ORDERED. CALL LIGHT AND FREQUENTLY USED ITEMS WITHIN REACH.
[2020-11-15 04:00] VITALS: BP 106/64
--- NOTE | 2020-11-15 06:58 | NUR ---
PT IS ABLE TO COMMUNICATE HIS NEEDS TO STAFF WITH MINOR DIFFICULTY; HE HAS BECOME CONFUSED AT TIMES AND CAN BE STUBBORN WELL. CURRENT PAIN MEDICATION REGIMEN HAS BEEN ADEQUATE FOR CONTROLLING HIS PAIN UP TO THIS TIME. PT HAS BEEN EDUCATED TO WHY IT IS EXTREMELY IMPORTANT FOR HIM TO GET OUT OF BED TODAY AND WORK WITH PT/OT. MOST RECENT CHEST XRAY SHOWED SOME POTENTIAL LUNG PROBLEMS.
[2020-11-15 08:00] VITALS: BP 129/68
[2020-11-15] MEDS ORDERED: LIDOPATCH1 EACH TOP ×2 (09:11)
[2020-11-15] MEDS ORDERED: HYDROCODON-ACE1 EAC7 PO ×2 (09:11)
[2020-11-15] MEDS ORDERED: TRAMADOL 50 MG50 MG PO ×2 (09:11)
[2020-11-15] MEDS ORDERED: COLACE 100 MG100 MG PO ×2 (09:11)
[2020-11-15] MEDS ORDERED: NEURONTIN600 MG PO ×2 (09:11)
[2020-11-15] MEDS ORDERED: LEVOFLOXACIN500 MG PO ×2 (09:13)
[2020-11-15 12:00] VITALS: BP 123/58
--- NOTE | 2020-11-15 15:32 | NUR ---
PLAN OF CARE: PHYSICIAN INFORMS OF PLAN FOR THE PT TO D/C TO SNF TODAY. PT AND SPOUSE REQUEST SNF PLACEMENT AT [facility]. CM CALLED AND FAXED PT'S CLINCIAL INFO TO [facility]. HOWEVER THEY HAVE NOW RETURNED CALL TO INFORM THAT THEIR MEDIA ANALYTICS MANAGER HAS DECIDED TO DECLINE THE PT D/T HIS ALCOHOL HX. PT AND SPOUSE INFORMED AND HAVE CHOSEN 2 OTHER FACILITIES ([facility] AND [facility]) FOR SNF REFERRALS. PT'S SPOUSE TO VISIT BOTH FACILITIES TODAY. CM FAXED SNF REFERRALS TO BOTH FACILITIES. CM WILL REMAIN AVAILABLE TO ASSIST AND FOLLOW NEEDED.
[2020-11-15 16:00] VITALS: BP 133/72
[2020-11-15 20:00] VITALS: BP 120/52
[2020-11-16] VITALS: BP 127/62
[2020-11-16 04:00] VITALS: BP 134/50
--- NOTE | 2020-11-16 04:09 | NUR ---
ASSUMED PT CARE AT APPROX 1930. PT IS AWAKE AND ORIENTED X4. PT IS TRACING SR ON THE [facility]. PT IS NOT IN DISTRESS, NO DESATURATIONS NOTED ON 2L OF O2. PT DENEIS PAIN/DISCOMFORT AT THIS TIME. FREQUENT BED CHANGES DONE DUE TO INCONTINENCE. PAIN MEDICINE GIVEN PER MAR FOR BACK PAIN WITH RELIEF. NO ACUTE CHANGES THIS SHIFT. CALL LIGHT WITHIN REACH. HIGH FALL PRECAUTIONS IN PLACE. HOURLY ROUNDING DONE FOR PT SAFETY.
[2020-11-16 08:00] VITALS: BP 147/74
[2020-11-16 12:00] VITALS: BP 133/71
--- NOTE | 2020-11-16 15:10 | NUR ---
RECEIVED REPORT AROUND 0715. ASSUMED CARE. VS AND ASSESSMENT CHARTED. IV INTACT THIS AM. HEART MONITOR ATTACHED AT SR WITH 1ST DEG THIS AM. PAIN THROUGH OUT SHIFT. DISCHARGE ORDERS RECEIVED. IV TAKEN OUT. HEART MONITOR TAKEN OFF. MEDS GIVEN PER JUL. HOURLY ROUNDING PERFORMED. REPORT CALLED TO [facility]. GAVE REPORT TO MACK AT 1347. AMBULANCE TOOK PT OFF UNIT AT 1500 WITH ALL BELONGINGS.
--- NOTE | 2020-11-16 15:36 | NUR ---
PT TO D/C TODAY TO [facility] SNF PER PT'S SPOUSE REQUEST. [facility] AND D/C ORDERS HAVE BEEN FAXED. RN TO CALL REPORT. PT TO LETI VIA NON-EMERGENT CJ. PT REQUEST TO COMPLETE DPOA. CM NOTARIZED AND PLACED COPY ON CHART. PT'S SPOUSE TO PICK-UP ADDITIONAL COPIES OF DPOA. CM WILL REMAIN AVAILABLE TO ASSIST AND FOLLOW NEEDED. [facility] PNONE: [phone]
--- NOTE | 2020-11-21 06:56 | OP ---
[facility] [address] [place] [address] OPERATIVE REPORT Name: AMIRAHMIGUELITO ABARCA Lore Room: [address] IN .R.#: [id number] Admission: 11/10/20 Attend Phys: Lili Osborne MD Discharge: 11/16/20 Date of : 39 Report #: [id number] THIS REPORT FOR: cc: Gloria Flores Maggie M. DO Justice, Michael J. DO ~ DATE OF SURGERY: 11/11/2020 PREOPERATIVE DIAGNOSIS: Right displaced femoral neck fracture. POSTOPERATIVE DIAGNOSIS: Right displaced femoral neck fracture. PROCEDURE: Right cristhian hip arthroplasty. IMPLANTS: 1. Biomet Taperloc stem standard offset 13 x 146 mm. 2. A 28 x 49 mm acetabular shell. 3. A 28 mm standard offset head. SURGEON: Haroldo Do DO ANESTHESIA: General. FLUIDS: Crystalloid. ESTIMATED BLOOD LOSS: 150 mL. DRAINS: None. SPECIMENS: None. COMPLICATIONS: None. CONDITION: Stable. DISPOSITION: PACU to med/surg floor. PREOPERATIVE ANTIBIOTICS: 2 grams Ancef IV. INDICATIONS: The patient is a pleasant 84-year-old male who is an alcoholic. He had a ground level fall yesterday afternoon, sustaining a displaced femoral neck fracture as verified on x-ray and CT scan. He was recommended for cristhian hip arthroplasty. We discussed the risks, benefits and alternatives of this. They verbalized understanding and wanted to proceed. FINDINGS: We evaluated the hip intraoperatively. We encountered typical [facility] [address] [place] [address] OPERATIVE REPORT Name: DENNISMIGUELITO D Room: [address] IN .R.#: [id number] Admission: 11/10/20 Attend Phys: Lili Osborne MD Discharge: 11/16/20 Date of : 39 Report #: [id number] fracture hematoma and a subcapital femoral neck fracture. Bone quality was thin and somewhat soft. Soft tissues were very tight and contracted. He does have a history of a major back surgery with extensive instrumented fusion throughout the thoracic and lumbar spine. He ambulates with a walker typically, which has contributed to soft tissue contractures. DESCRIPTION OF PROCEDURE: The patient was brought to the operating suite, placed in supine position on the OR table, given the benefit of general anesthetic. He was then positioned into a lateral decubitus position and secured on the pegboard in standard fashion. Axillary roll was placed. His right leg was then prepped and draped in the usual sterile fashion with chlorhexidine scrub, alcohol and ChloraPrep paint. A time-out was utilized to ensure proper operative patient, procedure and extremity. Once antibiotic administration was verified, we began making an approximate 12-14 cm incision over the lateral hip and greater trochanter. We carefully dissected through subcutaneous tissues to identify the iliotibial band, which was then split in line with the skin incision. A Charnley retractor was placed. The anterior third of the gluteus medius was elevated off the anterior portion of the femur. We then performed a T-shaped capsulotomy, at which point we encountered the fracture hematoma. We flexed and externally rotated the hip to deliver this into the wound, at which point we utilized a reciprocating saw to create a fresh osteotomy in standard fashion about a fingerbreadth above the lesser trochanter. We then removed the femoral head with a corkscrew and sized the acetabulum. A 49 mm shell sat nice and flush with a nice vacuum seal. We then began preparation of the femur initially with an entry reamer and a box osteotome, then sequentially broached up to a size 13. We trial reduced with a -3 head and standard offset neck. This gave us a nice stable hip, but seemed a little loose. Upon dislocation, was noted that the stem had spun slightly. Upon further evaluation, we noticed a longitudinal crack in the calcar. We subsequently placed a cable around the proximal femur to help stabilize this and then trial reduced once more with a 13 mm stem. We elected to implant the 13 as our final, which was seated nice and secure and then the 28 x 49 mm bipolar head was impacted onto the Salazar taper of the trunnion in standard fashion. It was nice and secure as confirmed with a firm tug and a final reduction was performed. We thoroughly irrigated the hip and began our closure. We used #[address] multiple tgjmus-kk-oggxk stitches with bony bites through the greater trochanter to help repair our gluteus medius. We oversewed this with multiple #1 Vicryl stitches as well to give us a very nice stable repair of his gluteus. We also placed #1 Vicryl in our capsulotomy to repair it prior to the gluteus repair. We then used #1 Vicryl in multiple umvvdg-mw-xcpya fashion to perform closure of the iliotibial band. The subcutaneous and subcuticular layers were closed in a layered fashion with 2-0 Vicryl. Felipe were applied [address] [address] OPERATIVE REPORT Name: AMIRAHMIGUELITO ABARCA Lore Room: [address]#: [id number] Admission: 11/10/20 Attend Phys: Lili Osborne MD Discharge: 11/16/20 Date of : 39 Report #: [id number] to the skin. A sterile dressing was applied. The patient was transferred to PACU in stable condition. <ELECTRONICALLY SIGNED> By: Warner Rajan DO 11/21/20 0656 1336 1650Haroldo Do DO /hilda
== END 2020-11-16 15:00 | DRG 522 ==
LOC: M.ERS 14:05 → M.2W 16:07 → M.TBA-ER 16:07 → M.2W 21:43
PROVIDERS: Family Medicine; Orthopaedic Surgery; ADMIT Internal Medicine; ATTEND Internal Medicine
PROC: 0SRR0JZ Replacement of Right Hip Joint, Femoral Surface with Synthetic Substitute, Open Approach (ICD-10-PCS; principal; 2020-11-11)
DX: S72.041A Displaced fracture of base of neck of right femur, initial encounter for closed fracture (principal); S51.011A Laceration without foreign body of right elbow, initial encounter; F10.129 Alcohol abuse with intoxication, unspecified; I10 Essential (primary) hypertension; E78.5 Hyperlipidemia, unspecified; N40.0 Benign prostatic hyperplasia without lower urinary tract symptoms; Z20.822 Contact with and (suspected) exposure to COVID-19; M19.90 Unspecified osteoarthritis, unspecified site; K21.9 Gastro-esophageal reflux disease without esophagitis; W01.0XXA Fall on same level from slipping, tripping and stumbling without subsequent striking against object, initial encounter; Y93.89 Activity, other specified; Z86.73 Personal history of transient ischemic attack (TIA), and cerebral infarction without residual deficits; Y92.098 Other place in other non-institutional residence as the place of occurrence of the external cause; Y99.8 Other external cause status; Z87.891 Personal history of nicotine dependence

== ENCOUNTER 2020-12-07 12:27 | Inpatient (IN) | payer MEDICARE, OTHER ==
[~2020-12-07] VITALS: Ht 182.9 cm; Wt 103.9 kg
[~2020-12-07 12:27] MED LIST changes: +ASPIRIN EC81 M1 PO; +LEVOFLOXACIN500 MG PO; +LIDOPATCH1 EACH TOP; +NEURONTIN600 MG PO
[2020-12-07 12:30] VITALS: BP 130/80
[2020-12-07 13:07] LABS: HEMATOCRIT 35.4 % (42.0-52.0); HEMOGLOBIN 12.5 gm/dL (14.0-18.0); MCH 33.6 pg (26.0-34.0); MCHC 35.3 g/dL (28.0-37.0); MCV 95.2 fL (80.0-100.0); MPV 8.2 fl. (7.2-11.1); NUCLEATED RBCS 0 /100WBC; PLATELET COUNT* 291 thou/uL (150-400); RBC 3.72 mil/uL (4.50-6.00); WBC 8.7 thou/uL (4.0-11.0)
--- NOTE | 2020-12-07 13:31 | EKG ---
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1935 Requested By: Jax Wilson Order Number: [id number] MD: Santana Roman Measurements Intervals Holland Rate: 131 P: OR: QRS: -77 QRSD: 99 T: 22 QT: 339 QTc: 501 Interpretive Statements Atrial fibrillation Inferior infarct, old Anteroseptal infarct, age indeterminate Prolonged QT interval Compared to ECG 11/10/2020 14:30:55 Prolonged QT interval now present Sinus rhythm no longer present Myocardial infarct finding still present Electronically Signed On 12-07-2020 13:31:06 CDT by Santana Roman [email or web address] <ELECTRONICALLY SIGNED> By: Santana Roman MD, [facility] 12/07/20 1331 1250 1250 Santana Roman MD, [facility] /EPI
[2020-12-07 13:34] LABS: CALCIUM 8.2 mg/dL (8.5-10.1); CREATININE 0.9 mg/dL (0.6-1.3); POTASSIUM 3.6 mmol/L (3.5-5.1)
[2020-12-07 13:38] LABS: ALBUMIN 2.7 g/dL (3.4-5.0); TOTAL BILIRUBIN 1.8 mg/dL (<0.1-1.0); TOTAL PROTEIN 6.1 g/dL (6.4-8.2)
[2020-12-07 13:58] LABS: ABSOLUTE MONOCYTES 0.3 thou/uL (0.0-1.2); ABSOLUTE NEUTROPHILS 7.4 thou/uL (1.6-8.1); PLATELET ESTIMATE ADEQUATE
--- NOTE | 2020-12-07 17:21 | 2DMMODE ---
[place] [address] 2 D/M-MODE ECHOCARDIOGRAM Name: AMIRAHMIGUELITO ABARCA Lore Room: [place] [address] ADM IN [place].Anastasiia.#: [id number] Admission: 12/07/20 Attend Phys: Melita Herbert MD Discharge: Date of : 39 Date of Service: 12/07/20 1721 Report #: [id number] THIS REPORT FOR: cc: Gloria Flores Maggie M. DO Blick, David R. MD [facility] ~ APPROVED REPORT Study performed: 12/07/2020 16:22:11 EXAM: Comprehensive 2D, Doppler, and color-flow Echocardiogram Patient Location: In-Patient Room #: ER Status: routine BSA: 2.22 HR: 101 bpm BP: 102/54 mmHg Rhythm: Atrial Fibrillation Other Information Study Quality: Good Indications Atrial Fibrillation 2D Dimensions IVSd: 12.47 (7-11mm) LVOT Diam: 22.79 (18-24mm) LVDd: 41.32 mm PWd: 11.31 (7-11mm) Ascending Ao: 40.25 (22-36mm) LVDs: 27.25 (25-40mm) Aortic Root: 38.35 mm Volumes Left Atrial Volume (Systole) LA ESV Index: 20.00 mL/m2 Aortic Valve AoV Peak Ulysses.: 1.45 m/s AO Peak Gr.: 8.43 mmHg LVOT Max P.12 mmHg AO Mean Gr.: 4.65 mmHg LVOT Mean P.85 mmHg LVOT Max V: 1.13 m/s AO V2 VTI: 23.96 cm LVOT Mean V: 0.79 m/s VICKY (VTI): 2.84 cm2 LVOT V1 VTI: 16.67 [place] [address] 2 D/M-MODE ECHOCARDIOGRAM Name: MIGUELITO COLLINS Room: [address] IN .R.#: [id number] Admission: 12/07/20 Attend Phys: Melita Herbert MD Discharge: Date of : 39 Date of Service: 12/07/20 1721 Report #: [id number] Tricuspid Valve RAP Estimate: 5.00 mmHg TR Peak Gr.: 45.35 mmHg RVSP: 50.00 mmHg PA Pressure: 50.00 mmHg Left Ventricle The left ventricle is normal size. There is normal LV segmental wall motion. Mild concentric left ventricular hypertrophy. Left ventricular systolic function is normal. The left ventricular ejection fraction is within the normal range. LVEF is 60-65%. This study is not technically sufficient to allow evaluation of the LV diastolic function due to atrial fibrillation. Right Ventricle The right ventricle is normal size. The right ventricular systolic function is normal. Atria The left atrium size is normal. The right atrium size is normal. Aortic Valve Moderate aortic valve sclerosis. moderate aortic regurgitation. There is no aortic valvular stenosis. Mitral Valve The mitral valve is normal in structure. There is no mitral valve regurgitation noted. No evidence of mitral valve stenosis. Tricuspid Valve The tricuspid valve is normal in structure. Mild tricuspid regurgitation. pulmonary artery pressure 50 mm Hg Pulmonic Valve The pulmonary valve is normal in structure. There is no pulmonic valvular regurgitation. Great Vessels Aortic root is mildly dilated. IVC is normal in size and collapses >50% with inspiration. Pericardium There is no pericardial effusion. <Conclusion> Mild [place] [address] 2 D/M-MODE ECHOCARDIOGRAM Name: MGIUELITO COLLINS Room: [address] IN M.R.#: [id number] Admission: 12/07/20 Attend Phys: Melita Herbert MD Discharge: Date of : 39 Date of Service: 12/07/201720 Report #: [id number] LVEF is 60-65%. Moderate aortic valve sclerosis. moderate aortic regurgitation. Mild tricuspid regurgitation. pulmonary artery pressure 50 mm Hg <ELECTRONICALLY SIGNED> By: Santana Roman MD, [facility] 12/07/201720 20 20 Santana Roman MD, FACC /INF
[2020-12-07 18:20] VITALS: BP 112/54
[2020-12-07 21:21] VITALS: BP 110/54
[2020-12-07 23:00] VITALS: BP 94/49
[2020-12-08 05:17] VITALS: BP 118/65
[2020-12-08 05:21] LABS: HEMATOCRIT 35.6 % (42.0-52.0); HEMOGLOBIN 12.2 gm/dL (14.0-18.0); MCH 32.5 pg (26.0-34.0); MCHC 34.3 g/dL (28.0-37.0); MCV 94.7 fL (80.0-100.0); RBC 3.75 mil/uL (4.50-6.00); RDW-CV 13.6 % (10.5-14.5); WBC 7.6 thou/uL (4.0-11.0)
[2020-12-08 05:32] LABS: CALCIUM 8.2 mg/dL (8.5-10.1); CREATININE 0.9 mg/dL (0.6-1.3); POTASSIUM 3.2 mmol/L (3.5-5.1)
--- NOTE | 2020-12-08 07:02 | NUR ---
RECEIVED REPORT FROM RADHIKA ACUNA. PT TRANSFERRED TO 232. PT A&OX4. 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 ADMISSION HISTORY & PHYSICAL ASSESSMENT COMPLETED AND CHARTED. PT ON O2 AT 2LNC. PT TRACING AFIB ON TELE. PT WITH VALDEZ TO DEPENDENT DRAIN. MAINTAINED ON CARDIZEM DRIP ORDERED. CALL LIGHT WITHIN REACH. UPDATED REGARDING PTS CONDITION THIS AM.
[2020-12-08 08:57] VITALS: BP 137/92
--- NOTE | 2020-12-08 10:42 | CON ---
[facility] [address] [place] [address] CONSULTATION Name: DENNISMIGUELITO Lore Room: [address] IN M.R.#: [id number] Admission: 12/07/20 Attend Phys: Melita Herbert MD Discharge: Date of : 39 Report #: [id number] THIS REPORT FOR: cc: Gloria Flores Maggie M. DO Blick, David R. MD [facility] ~ cc: Gloria Flores DO DATE OF CONSULTATION: 12/07/2020 CARDIOLOGY CONSULTATION HISTORY OF PRESENT ILLNESS: The patient is an 84-year-old white male who I was asked to see in the emergency room today after he was noted to be in atrial fibrillation. The patient has no previous history of heart disease. He apparently had a stress test in the past. He is not very active because of arthritis. He apparently was admitted in November and had hip surgery. He is now undergoing rehabilitation. He uses a walker. He notes yesterday he felt lightheaded, weak, short of breath. He felt the same this morning, so he called the ambulance. He was brought here to [place], noted to be in atrial fibrillation. Cardiology consultation requested. He denies a history of chest pain, fever, cough, palpitations. He has felt lightheaded. He has chronic edema. PAST MEDICAL HISTORY: He has had back surgery, knee surgery, hip surgery, cholecystectomy, cataract extraction. No history of diabetes. He has hypertension. No history of hyperlipidemia. CURRENT MEDICATIONS: Include Lasix, losartan, Proscar, metoprolol, Flomax, , aspirin, Neurontin. ALLERGIES: He has no known drug allergies. FAMILY HISTORY: His father when he was 40 suddenly. SOCIAL HISTORY: He is . He and his live in [place]. 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 He quit smoking 40 years ago. He has a history of alcohol abuse. Used to drink up to a fifth of whiskey a day, quit a month ago after his hip surgery. 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 No history of asthma, liver disease, kidney disease. He has had a skin cancer removed in the past. No psychiatric illness. No chronic skin condition. PHYSICAL EXAMINATION: [place] [address] CONSULTATION Name: MIGUELITO COLLINS Room: [address]#: [id number] Admission: 12/07/20 Attend Phys: Melita Herbert MD Discharge: Date of : 39 Report #: [id number] GENERAL: Elderly male, lying in bed, appeared in no distress. VITAL SIGNS: Blood pressure is 120/80, pulse is 100 and irregular. He is afebrile. HEENT: He is anicteric. Conjunctivae pink. Mucous membranes are moist. NECK: Veins not appear distended. No carotid bruits. CHEST: Clear to auscultation. HEART: rhythm, no significant murmur. ABDOMEN: Soft. EXTREMITIES: Had no pitting edema. SKIN: Cool and dry. NEUROLOGIC: Nonfocal. IMAGING: His ECG shows atrial fibrillation with previous inferior infarction, poor R-wave progression. He actually had an echocardiogram in 2019 that showed ejection fraction of 60% with aortic sclerosis. He had a portable chest x-ray in the emergency room today that showed cardiomegaly, mild vascular congestion, small effusion. LABORATORY WORK: His sodium 132, potassium 3.6, creatinine 0.9. His liver function studies were normal. Albumin 2.7. Troponin 0.06. His previous LDL in 2019 was 36. TSH in 2018 was 3.6. His hematocrit 35.4. His COVID antigen stat test was negative. IMPRESSION AND RECOMMENDATIONS: 1. Atrial fibrillation. Onset unclear. Recommend diltiazem for rate control. We will continue chronic anticoagulation with Eliquis. 2. Hypertension. The patient is on an ARB and beta bismark. 3. Recent hip surgery. 4. Chronic back pain. 5. History of alcohol abuse. 6. Previous tobacco abuse. Fortunately, the patient no longer smokes. <ELECTRONICALLY SIGNED> By: Santana Roman MD, FACC 12/08/20 1042 1354 1952Dally Roman MD, FACC /nt
[2020-12-08 12:00] VITALS: BP 142/89
--- NOTE | 2020-12-08 15:55 | NUR ---
THIS POLICY MANAGER IS IN AGREEMENT WITH DOCUMENTED NOTE BY SUSANNAH BALL FOR THIS DAY. TYESHA SIMPSONT
[2020-12-08 16:00] VITALS: BP 136/72
[2020-12-08 20:00] VITALS: BP 130/72
[2020-12-09 00:36] VITALS: BP 110/61
[2020-12-09 04:00] VITALS: BP 147/813
[2020-12-09 05:21] LABS: HEMATOCRIT 33.6 % (42.0-52.0); HEMOGLOBIN 11.7 gm/dL (14.0-18.0); MCH 33.1 pg (26.0-34.0); MCHC 34.9 g/dL (28.0-37.0); MCV 94.9 fL (80.0-100.0); MPV 7.9 fl. (7.2-11.1); RBC 3.54 mil/uL (4.50-6.00); WBC 7.6 thou/uL (4.0-11.0)
[2020-12-09 05:59] LABS: CALCIUM 8.1 mg/dL (8.5-10.1); CREATININE 0.8 mg/dL (0.6-1.3); POTASSIUM 3.1 mmol/L (3.5-5.1)
[2020-12-09 09:34] VITALS: BP 125/68
[2020-12-09] MEDS ORDERED: DILTIAZEM 24HR240 M1 PO (10:24)
[2020-12-09] MEDS ORDERED: LASIX 40 MG TAB40 M1 PO (10:24)
[2020-12-09] MEDS ORDERED: ELIQUIS5 MG PO (10:24)
[2020-12-09 10:51] VITALS: BP 125/68
--- NOTE | 2020-12-09 11:53 | NUR ---
[facility].
--- NOTE | 2020-12-09 13:34 | NUR ---
pt left hospital via wheelchair in stable condition with transport.
== END 2020-12-09 13:10 | DRG 308 ==
LOC: M.ERS 12:27 → M.TBA-ER 14:24 → M.2W 22:17
PROVIDERS: Emergency Medicine; ADMIT Family Medicine; ATTEND Family Medicine
DX: I48.91 Unspecified atrial fibrillation (principal); I50.33 Acute on chronic diastolic (congestive) heart failure; E87.1 Hypo-osmolality and hyponatremia; Z85.828 Personal history of other malignant neoplasm of skin; I11.0 Hypertensive heart disease with heart failure; E78.5 Hyperlipidemia, unspecified; I95.9 Hypotension, unspecified; N40.0 Benign prostatic hyperplasia without lower urinary tract symptoms; K21.9 Gastro-esophageal reflux disease without esophagitis; G89.29 Other chronic pain; M54.9 Dorsalgia, unspecified; F10.11 Alcohol abuse, in remission; I35.1 Nonrheumatic aortic (valve) insufficiency; Z20.822 Contact with and (suspected) exposure to COVID-19; Z90.49 Acquired absence of other specified parts of digestive tract; Z86.73 Personal history of transient ischemic attack (TIA), and cerebral infarction without residual deficits; Z79.82 Long term (current) use of aspirin; Z79.899 Other long term (current) drug therapy